=== PATIENT | female | born 1955 | race Caucasian/White ===

== ENCOUNTER 2019-09-22 09:20 | Emergency (ER) | payer BC ==
[~2019-09-22] VITALS: Ht 165.1 cm; Wt 73.5 kg
--- NOTE | 2019-09-22 09:52 | NUR ---
dr bowman at bedside for eval.
[2019-09-22 12:32] VITALS: BP 142/80
--- NOTE | 2019-09-22 12:32 | NUR ---
pt splinted. d/c home in stable condition.
== END 2019-09-22 12:34 | disposition home or self-care (01) ==
LOC: ER 09:23
DX: S82.62XA Displaced fracture of lateral malleolus of left fibula, initial encounter for closed fracture (principal); W10.8XXA Fall (on) (from) other stairs and steps, initial encounter; Y93.89 Activity, other specified; Y92.89 Other specified places as the place of occurrence of the external cause; Y99.8 Other external cause status
CPT/HCPCS: 73564-TC; 73590-TC; 73610-TC

== ENCOUNTER 2019-09-24 17:33 | Emergency (ER) | payer BC ==
[~2019-09-24] VITALS: Ht 165.1 cm; Wt 77.1 kg
[2019-09-24] MEDS ORDERED: KETOROLAC TROMETHAMINE 15 MG/ML VIAL ONE (17:57)
[2019-09-24] MEDS ORDERED: ONDANSETRON 4 MG TAB.RAPDIS ONE (17:57)
[2019-09-24] MEDS ORDERED: HYDROMORPHONE 1 MG/1 ML DISP.SYRIN ONE (17:57)
[2019-09-24] MEDS ORDERED: HYDROMORPHONE 1 MG/1 ML DISP.SYRIN IM ONE (18:00)
[2019-09-24] MEDS ORDERED: KETOROLAC TROMETHAMINE INJ 60 MG/2 ML VIAL IM ONE (18:00)
[2019-09-24] MEDS ORDERED: ONDANSETRON 4 MG TAB.RAPDIS SL ONE (18:00)
--- NOTE | 2019-09-24 18:06 | NUR ---
BIBRA [id number] FROM HOME C/O R KNEE PAIN FOR 2 DAYS. PATIENT A/OX4, BREATHING EVEN AND UNLABORED, NO SOB NOTED. NEEDS ATTENDED.
--- NOTE | 2019-09-24 19:14 | NUR ---
REPORT GIVEN TO CIRO HAYES.
--- NOTE | 2019-09-24 19:25 | NUR ---
PATIENT WALKS WITH STEADY GAIT W/ IVET WRAP ON RIGHT KNEE AND WALKING BOOT FOR LEFT ANKLE.
--- NOTE | 2019-09-24 19:26 | NUR ---
PATIENT CALLING FRIEND TO PICK HER UP ETA 10 MINUTES
--- NOTE | 2019-09-24 19:39 | NUR ---
PATIENT GIVEN PRESCRIPTIONS PRESCRIBED BY DR. BENITEZ, EXPLAINED. TEACHBACK THAT SHE WILL NOT TAKE OTHER PAIN MEDICATIONS WITH HER PERCOCET AND NOT TO DRIVE. PATIENT VERBALIZES UNDERSTANDING.
--- NOTE | 2019-09-24 19:40 | NUR ---
Patient discharged to home in stable condition. Written and verbal after care instructions given. Patient verbalizes understanding of instruction.
--- NOTE | 2019-09-24 19:48 | NUR ---
PT AMBULATED TO THE LOBBY USING A WALKER. PT'S GAIT WAS STEADY. PT'S FRIEND IS PICKING HER UP.
[2019-09-24 20:19] VITALS: BP 121/65
== END 2019-09-24 20:21 | disposition home or self-care (01) ==
LOC: EDUNIT# 17:33 → ER 17:36
DX: S82.492D Other fracture of shaft of left fibula, subsequent encounter for closed fracture with routine healing (principal); M25.561 Pain in right knee; R22.42 Localized swelling, mass and lump, left lower limb; M19.90 Unspecified osteoarthritis, unspecified site; X58.XXXD Exposure to other specified factors, subsequent encounter
CPT/HCPCS: 96372 ×2; 99283; J1170; J1885; Q0162